=== PATIENT | male | born 1940 | race Caucasian/White ===

== ENCOUNTER 2017-03-27 21:56 | Emergency (ER) | payer OTHER ==
[~2017-03-27] VITALS: Ht 177.8 cm; Wt 106.0 kg
[~2017-03-27 21:56] MED LIST: ACET1TAB84 PO; ASPI81TA28 PO; CLTP PO; GLCSUNK PO; IBUP-1459 PO; LVQ750 PO; MULT-506 PO; OMEG10007 PO; PRVHFAIN INH
[2017-03-27 21:58] VITALS: TEMP 37.1; Ht 177.8 cm; Wt 106.0 kg
[2017-03-27] MEDS ORDERED: LIDOCAINE/EPINEPHRINE 1% 20 ML VIAL INFIL ONE (22:15)
[2017-03-27] MEDS ORDERED: OXYMETAZOLINE HCL 0.05% NA SPR 15 ML BTL ONE (22:17)
--- NOTE | 2017-03-27 22:17 | EMERGENCY ROOM VISIT NOTE ---
History Report prepared by Anitha: Juan Berman Under the Supervision of: Dr. Raheem Taylor M.D. First contact with patient: 22:00 Chief Complaint: NOSE BLEED (MAJOR) Stated Complaint: NOSE BLEED History of Present Illness The patient is a 76 year old white male with a past medical history of diverticulitis, an appendectomy, elevated normal blood pressure who presents to the ED with a cc of a resolved nosebleed that occurred 1.5 hours ago. He states he was packing a suitcase when his nose started bleeding. The patient notes for the past month his nose has been unusually dry. Positive taking a baby aspirin, taste of blood in the back of throat. Negative previous history of nose bleeds, current bleeding, nausea, vomiting. Source of History: patient Onset: 1.5 hours ago Position: nose Quality: other (bleed) Timing: resolved Associated Symptoms: No nausea, No vomiting Note: Associated symptoms: taste of blood in the back of his throat Denies: history of nosebleeds Review of Systems See HPI for pertinent positives and negatives. A total of ten systems were reviewed and were otherwise negative. Past Medical & Surgical Medical Problems: (1) Diverticulosis Colon (W/O Ment Of Hemorrhage) (2) GI bleed (3) Osteoarthros Nos-Unspec (4) PNA (pneumonia) (5) Skin problem Surgical Problems: (1) Hx of appendectomy (2) S/P knee replacement Family History Cancer Diabetes mellitus Heart disease Social History Smoking Status: Never Smoker Alcohol Use: occasionally Marital Status: single Housing Status: lives alone Occupation Status: retired Current/Historical Medications Scheduled Acetaminophen (Tylenol Arthritis Ext Rel), 1,350 MG PO QAM Aspirin (Aspirin Ec), 81 MG PO DAILY Calcium Carbonate-Vitamin D W/ (Caltrate 600 Plus), 1 TAB PO BID Fish Oil ([place]-3), 2 CAP PO DAILY Glucosamine Sulfate (Glucosamine), 2 CAP PO QAM Multivitamins/Minerals (Mvi With Minerals), 1 TAB PO DAILY Scheduled PRN Cyclobenzaprine Hcl (Flexeril), 5 MG PO TID PRN for Muscle Spasms Ibuprofen (Motrin), 400 MG PO Q6H PRN for Pain Allergies Coded Allergies: No Known Allergies (Unverified , 07/15/11) Physical Exam Vital Signs Date Time Temp Pulse Resp B/P (MAP) Pulse Ox O2 Delivery O2 Flow Rate FiO2 03/27/17 21:58 37.1 73 185/88 95 Room Air Physical Exam GENERAL: Awake, alert, well-appearing, NAD HENT: Normocephalic, atraumatic. Dried blood in the oropharynx. No blood running down the posterior oropharynx. Clot in the bilateral nares. All anterior. No septal hematoma. EYES: Normal conjunctiva. Sclera non-icteric. NECK: Supple. No nuchal rigidity. FROM. RESPIRATORY: CTAB, no rhonchi, wheezing, crackles CARDIAC: RRR, no MRG ABDOMEN: Soft, NTND, BS+ MSK: No chest wall TTP, no LE edema NEURO: GCS 15, CN 2-12 intact, moves all 4s on command SKIN: No rash or jaundice noted. No bruising or petechia noted. Medical Decision & Procedures Laboratory Results 03/27/17 22:30 Red Blood Count 3.90, Mean Corpuscular Volume 99.2, Mean Corpuscular Hemoglobin 33.1, Mean Corpuscular Hemoglobin Concent 33.3, Mean Platelet Volume 9.6, Neutrophils (%) (Auto) 65.0, Lymphocytes (%) (Auto) 25.5, Monocytes (%) (Auto) 8.0, Eosinophils (%) (Auto) 0.9, Basophils (%) (Auto) 0.3, Neutrophils # (Auto) 4.14, Lymphocytes # (Auto) 1.63, Monocytes # (Auto) 0.51, Eosinophils # (Auto) 0.06, Basophils # (Auto) 0.02 03/27/17 22:30 Test 03/27/17 22:30 White Blood Count 6.38 K/uL (4.8-10.8) Red Blood Count 3.90 M/uL (4.7-6.1) Hemoglobin 12.9 g/dL (14.0-18.0) Hematocrit 38.7 % (42-52) Mean Corpuscular Volume 99.2 fL (80-100) Mean Corpuscular Hemoglobin 33.1 pg (25-34) Mean Corpuscular Hemoglobin Concent 33.3 g/dl (32-36) Platelet Count 175 K/uL (130-400) Mean Platelet Volume 9.6 fL (7.4-10.4) Neutrophils (%) (Auto) 65.0 % Lymphocytes (%) (Auto) 25.5 % Monocytes (%) (Auto) 8.0 % Eosinophils (%) (Auto) 0.9 % Basophils (%) (Auto) 0.3 % Neutrophils # (Auto) 4.14 K/uL (1.4-6.5) Lymphocytes # (Auto) 1.63 K/uL (1.2-3.4) Monocytes # (Auto) 0.51 K/uL (0.11-0.59) Eosinophils # (Auto) 0.06 K/uL (0-0.5) Basophils # (Auto) 0.02 K/uL (0-0.2) RDW Standard Deviation 45.2 fL (36.4-46.3) RDW Coefficient of Variation 12.5 % (11.5-14.5) Immature Granulocyte % (Auto) 0.3 % Immature Granulocyte # (Auto) 0.02 K/uL (0.00-0.02) Prothrombin Time 11.2 SECONDS (9.0-12.0) Prothromb Time International Ratio 1.0 (0.9-1.1) Activated Partial Thromboplast Time 27.9 SECONDS (21.0-31.0) Partial Thromboplastin Ratio 1.1 Anion Gap 8.0 mmol/L (3-11) Est Creatinine Clear Calc Drug Dose 77.8 ml/min Estimated GFR () 85.0 Estimated GFR (Non- 73.3 BUN/Creatinine Ratio 20.9 (10-20) Calcium Level 8.6 mg/dl (8.5-10.1) Laboratory results reviewed by me Medications Administered Medications (Trade) Dose Ordered Sig/Donna Route Start Time Stop Time Status Last Admin Dose Admin Lidocaine/ Epinephrine (Xylocaine/Epine 1% Inj) 20 ml ONE ONCE INFIL 03/27/17 22:15 03/27/17 22:16 DC 03/27/17 22:19 20 ML Oxymetazoline HCl (Afrin 0.05% Nasal [place]) 75 sprays STK-MED ONCE .ROUTE 03/27/17 22:17 03/27/17 22:18 DC 03/27/17 22:19 75 SPRAYS ED Course 7: The patient was evaluated in room C02B. A complete history and physical exam was performed. 2313: I reevaluated the patient. He is no longer bleeding. Discussed results and discharge instructions: he verbalized understanding and agreement. The patient is ready for discharge. Medical Decision The patient is a 76 year old white male with a past medical history of diverticulitis, an appendectomy, elevated normal blood pressure who presents to the ED with a cc of a resolved nosebleed that occurred 1.5 hours ago. Etiologies such as anterior epistaxis, coagulopathy, traumatic injury, fracture , septal hematoma, posterior epistaxis as well as other pathologies were entertained. Patient was seen and evaluated at the bedside. Patient apparently had an unprovoked episode of epistaxis. Patient states that he's has had some dry nasal passages and he has found some moist pupil tells which she's inserted into his naris in order to help with that. Patient denies any trauma. Patient denies.Patient does take a baby aspirin but any other blood thinning medications. Patient doeshave a history of what he describes. Hypertension but is not on any kind antihypertensive medications. Patient did have some blood in the bilateral nares. Patient did have blood in the oropharynx butit was not actively bleeding. Patient did have blood work that was completed which showed a hemoglobin of 12.9, normal platelet count, and normal coagulopathy studies. Patient has not had any issues with breathing and furthermore the patient had normal vital signs. Patient is not tachycardic. Patient was discharged the prior to being discharged out of the department the patient had a recurrence of his nosebleed. Patient was reevaluated he was having bleeding coming from the right naris. The patient did have a right anterior 5-1/2 cm nasal pack Rhino Rocket placed. This was inflated. Was taped to the patient's cheek. Patient tolerated the procedure well. He Was Told That the Upfitter would Try to Schedule an Appointment for Friday. At Which Point If They're Unable to Obtain This Appointment He Should Return to the Emergency Department. Patient Was Given Her First Dose of Augmentin. Patient Was Given Strict Nasal Precautions Told to Follow up Here on Friday after He Returns from His Trip. Patient Was Told Take His Antibiotics As Prescribed. Patient Was Deemed Suitable for Outpatient Follow-Up and Treatment. Patient Was Also Told That He Should Discuss with His Primary Care Physician Should Be Placed on an Antihypertensive As He Has Been Hypertensive Today. Patient Agreed with Plan of Care and All Questions Were Answered.Patient was given strict follow-up, discharge, and return precautions. All questions were answered. Patient was deemed suitable for outpatient follow-up at this time. Patient agreed with the plan of care and was safely discharged home. Medication Reconcilliation Current Medication List: was personally reviewed by me Blood Pressure Screening Patient's blood pressure: Elevated blood pressure Blood pressure disposition: Referred to PCP Impression Primary Impression: Nosebleed Scribe Attestation The scribe's documentation has been prepared under my direction and personally reviewed by me in its entirety. I confirm that the note above accurately reflects all work, treatment, procedures, and medical decision making performed by me. Departure Information Dispostion Home / Self-Care Prescriptions Amoxicillin & Pot Clavulanate (Augmentin 875-125 mg) 1 Tab Tab 875 MG PO BID for 7 Days, #14 TAB Prov: Raheem Taylor M.D. 03/28/17 Referrals Tien Chou M.D. (PCP) Forms HOME CARE DOCUMENTATION FORM, IMPORTANT VISIT INFORMATION, WORK / SCHOOL INSTRUCTIONS Patient Instructions ED Nosebleed, My [facility], Nosebleeds - [facility] Additional Instructions Please return to the emergency department if you have worsening or recurrent symptoms not amenable to at-home treatment. Please call for a follow-up appointment with her primary care physician. Please take your medications as prescribed. If you have other concerns and/or complaints please feel free to also call your primary care physician's office or return the ED for further evaluation, management, and treatment. Please hold your aspirin for next 2-3 days. Do as we discussed if you have another nosebleed. You have been examined and treated today on an emergency basis only. This is not a substitute for, or an effort to provide, complete comprehensive medical care. It is impossible to recognize and treat all injuries or illnesses in a single emergency department visit. It is therefore important that you follow up closely with [facility], your PCP, and/or your specialist(s). Call as soon as possible for an appointment. Thank you for your time and consideration. I look forward to speaking with you again soon. Please don't hesitate to call us if you have any questions.
[2017-03-27] MEDS ORDERED: CALCTAB7 PO (22:28)
[2017-03-27] MEDS ORDERED: MULT-513 PO (22:28)
[2017-03-27] MEDS ORDERED: GLUC-172 PO (22:28)
[2017-03-27] MEDS ORDERED: CYCL5TAB PO (22:29)
[2017-03-27 22:42] LABS: BASO % 0.3 %; BASO ABS # 0.02 K/uL (0-0.2); COMPLETE YES; EOS % 0.9 %; HEMATOCRIT 38.7 % (42-52); IG% 0.3 %; LYMPH % 25.5 %; LYMPH ABS # 1.63 K/uL (1.2-3.4); MEAN CELL VOLUME 99.2 fL (80-100); MEAN CORPUSCULAR HEMOGLOBIN 33.1 pg (25-34); MEAN CORPUSCULAR HGB CONC 33.3 g/dl (32-36); MEAN PLATELET VOLUME 9.6 fL (7.4-10.4); PLATELET COUNT 175 K/uL (130-400); WHITE BLOOD COUNT 6.38 K/uL (4.8-10.8)
[2017-03-27 22:52] LABS: PARTIAL THROMBOPLASTIN RATIO 1.1; PROTHROMBIN TIME (PATIENT) 11.2 SECONDS (9.0-12.0)
[2017-03-27 22:58] LABS: BUN/CREATININE RATIO 20.9 (10-20); CALCIUM 8.6 mg/dl (8.5-10.1); POTASSIUM 3.6 mmol/L (3.5-5.1)
[2017-03-28] MEDS ORDERED: AMOXICILLIN/CLAVULANATE TAB 875 MG TAB PO ONE
[2017-03-28] MEDS ORDERED: AMOX875T PO (00:05)
[2017-03-28 00:21] VITALS: BP 157/99; PULSE 70; O2SAT 96
== END 2017-03-28 00:22 | disposition home or self-care (01) ==
LOC: EDBD 21:56 → C.EDC 21:59
DX: R04.0 Epistaxis (principal); K57.30 Diverticulosis of large intestine without perforation or abscess without bleeding; M19.90 Unspecified osteoarthritis, unspecified site; Z79.82 Long term (current) use of aspirin; Z96.659 Presence of unspecified artificial knee joint; Z83.3 Family history of diabetes mellitus

== ENCOUNTER 2017-03-31 15:55 | Emergency (ER) | payer OTHER ==
[~2017-03-31] VITALS: Ht 177.8 cm; Wt 104.9 kg
[~2017-03-31 15:55] MED LIST changes: +AMOX875T PO; +CALCTAB7 PO; -CLTP PO; +CYCL5TAB PO; -GLCSUNK PO; +GLUC-172 PO; -LVQ750 PO; -MULT-506 PO; +MULT-513 PO; -PRVHFAIN INH
[2017-03-31 16:01] VITALS: Ht 177.8 cm; Wt 104.9 kg
[2017-03-31 16:36] VITALS: BP 195/89; PULSE 66; TEMP 36.3; O2SAT 95
--- NOTE | 2017-03-31 16:40 | EMERGENCY ROOM VISIT NOTE ---
History First contact with patient: 16:14 Chief Complaint: PACKING REMOVAL Stated Complaint: PACKING FOR NOSEBLLEED TO BE REMOVED BY DR TEJEDA Nursing Triage Summary: pt states was seen night for nose bleed, pt states here for removal of packing. History of Present Illness The patient is a 76 year old male who presents to the Emergency Room for packing removal from a right epistaxis that was treated in our emergency Department last . The patient denies any recurrent bleed or postnasal drip. He is taking Augmentin as prescribed. He denies any headaches, cough, sore throat or fevers. Review of Systems 10 system review was performed and was negative except for pertinent positives and negatives as indicated in history of present illness Past Medical/Surgical History Medical Problems: (1) Diverticulosis Colon (W/O Ment Of Hemorrhage) (2) GI bleed (3) Osteoarthros Nos-Unspec (4) PNA (pneumonia) (5) Skin problem Surgical Problems: (1) Hx of appendectomy (2) S/P knee replacement Family History Cancer Diabetes mellitus Heart disease Social History Smoking Status: Former Smoker Alcohol Use: occasionally Marital Status: single Housing Status: lives alone Occupation Status: retired Current/Historical Medications Scheduled Acetaminophen (Tylenol Arthritis Ext Rel), 1,350 MG PO QAM Amoxicillin & Pot Clavulanate (Augmentin 875-125 mg), 875 MG PO BID Aspirin (Aspirin Ec), 81 MG PO DAILY Calcium Carbonate-Vitamin D W/ (Caltrate 600 Plus), 1 TAB PO BID Fish Oil ([place]-3), 2 CAP PO DAILY Glucosamine Sulfate (Glucosamine), 2 CAP PO QAM Multivitamins/Minerals (Mvi With Minerals), 1 TAB PO DAILY Scheduled PRN Cyclobenzaprine Hcl (Flexeril), 5 MG PO TID PRN for Muscle Spasms Ibuprofen (Motrin), 400 MG PO Q6H PRN for Pain Allergies Coded Allergies: No Known Allergies (Unverified , 07/15/11) Physical Exam Vital Signs Date Time Temp Pulse Resp B/P (MAP) Pulse Ox O2 Delivery O2 Flow Rate FiO2 03/31/17 16:01 36.3 66 20 195/89 95 Room Air Physical Exam CONSTITUTIONAL: Healthy and well nourished. Alert and oriented X 3 with positive affect. Patient does not appear in any acute distress. HEENT: Normocephalic, atraumatic. Pupils equal, round and reactive. No facial edema or erythema noted. Examination of the left nostril is clear. Packing was removed from the right nostril to show no active bleeding. NECK: Full active range of motion without discomfort. RESPIRATORY: Clear to auscultation bilaterally with no wheezing, crackles, rhonchi or stridor. CARDIOVASCULAR: Regular rate and rhythm with no murmurs, rubs or gallops. INTEGUMENTARY: No rash or other significant dermatologic conditions noted. NEUROLOGIC: Facial sensations are intact. Medical Decision & Procedures ED Course Patient history and physical exam were performed. Nurse's notes were reviewed. Vital signs were reviewed, showing persistent elevated blood pressure 195/89. The patient reports that he will be discussing his elevated blood pressures with his PCP on his next appointment of 04/10/17. Nasal packing was removed to show no persistent bleeding. The patient was instructed to continue with saline nasal sprays to keep mucous membranes moist. He was encouraged to avoid blowing his nose over the next several days, and avoid any further manual trauma to the nares. The patient reports that he has had notable drainage from the nostrils lately with crusting. The patient denies any sinus congestion, sore throat, fevers or other concerning symptoms. The patient did have several questions that were appropriately answered to his satisfaction, and the patient was happy with plan of care. Medical Decision Impression Primary Impression: Epistaxis Departure Information Dispostion Home / Self-Care Forms WORK / SCHOOL INSTRUCTIONS, HOME CARE DOCUMENTATION FORM, IMPORTANT VISIT INFORMATION Patient Instructions [facility], ED Nosebleed Additional Instructions If bleeding reoccurs, apply CONTINUOUS direct pressure for at least 20 minutes. Return to the emergency department for any uncontrollable bleed. Continue and finish all current antibiotics as prescribed. Continue with [place] Goldvein saline nasal sprays to keep mucous membranes moist. Suggest using a humidifier in your home. Keep your appointment with your family doctor for further reevaluation. Your blood pressure continues to be elevated at 195/89. Discussed this further with your PCP.
== END 2017-03-31 16:41 | disposition home or self-care (01) ==
LOC: C.EDB 15:56 → C.EDD 16:41
DX: Z09 Encounter for follow-up examination after completed treatment for conditions other than malignant neoplasm (principal); R04.0 Epistaxis; Z87.01 Personal history of pneumonia (recurrent); M19.90 Unspecified osteoarthritis, unspecified site; Z96.659 Presence of unspecified artificial knee joint; Z87.891 Personal history of nicotine dependence; Z80.9 Family history of malignant neoplasm, unspecified; Z83.3 Family history of diabetes mellitus; Z79.82 Long term (current) use of aspirin; Z79.899 Other long term (current) drug therapy